=== PATIENT | female | born 1995 | race Caucasian/White ===

== ENCOUNTER 2020-04-22 16:57 | Inpatient (IN) ==
[2020-04-22 18:06] LABS: Appearance Urine Clear (Clear); Bacteria Urine Automated Negative (Negative); Bilirubin Urine Negative (Negative); Blood Urine Trace (Negative); Color Urine Yellow; Epithelial Cell Urine Auto 20-30 /lpf (0-5); Glucose Urine UA Negative (Negative); Ketones Urine 4+ (Negative); Leukocyte Esterase Urine Negative (Negative); Nitrite Urine Negative (Negative); Protein Urine Negative (Negative); RBC Urine Automated 0-4 /hpf (0-4); Specific Gravity Urine 1.014 (1.000-1.030); Urobilinogen Urine Negative (Negative)
[2020-04-22 18:11] LABS: Basophils # (auto) 0.02 K/uL (0-0.2); Basophils % (auto) 0.3 %; Eosinophils # (auto) 0.07 K/uL (0-0.5); Hematocrit (blood only) 33.7 % (37-47); Hemoglobin 11.5 g/dL (12.0-16.0); Immature Granulocytes # (auto) 0.01 K/uL (0.00-0.02); Immature Granulocytes % (auto) 0.1 %; Lymphocytes % (auto) 34.4 %; Mean Corpuscular Hemoglobin 29.4 pg (25-34); Mean Corpuscular Hgb Conc 34.1 g/dL (32-36); Mean Corpuscular Volume 86.2 fL (80-100); Mean Platelet Volume 9.8 fL (7.4-10.4); Monocytes # (auto) 0.86 K/uL (0.11-0.59); Monocytes % (auto) 11.8 %; Neutrophils % (auto) 52.4 %; Platelet Count 298 K/uL (130-400); Red Blood Count 3.91 M/uL (4.2-5.4); White Blood Count 7.26 K/uL (4.8-10.8)
[2020-04-22 18:22] LABS: Amphetamines+Metham, Urine Pos (Neg); Barbiturates, Urine Neg (Neg); Benzodiazepine, Urine Neg (Neg); Cocaine, Urine Neg (Neg); MDMA (Ecstacy), Urine Neg (Neg); Methadone, Urine Neg (Neg); Opiate, Urine Neg (Neg); Phencyclidine, Urine Neg (Neg)
[2020-04-22 18:28] LABS: Albumin Level 4.5 gm/dl (3.4-5.0); BUN Creatinine Ratio 13.1 (10-20); Calcium 8.9 mg/dl (8.5-10.1); Creatinine Clr Calc Pharmacy 118.5 ml/min; Est GFR (African American) 149.1; Est GFR (Non-African American) 128.7
[2020-04-22 18:38] LABS: Albumin Globulin Ratio 1.5 (0.9-2); Bilirubin,Total 0.9 mg/dl (0.2-1); Globulin 2.9 gm/dl (2.5-4.0); Thyroid Stimulating Hormone 1.53 uIu/ml (0.300-4.500); Total Protein 7.4 gm/dl (6.4-8.2)
[2020-04-22 18:41] LABS: Acetaminophen < 2 ug/ml (10-30); Salicylate < 1.7 mg/dl (2.8-20)
--- NOTE | 2020-04-22 18:51 | Emergency Department Note ---
History of Present Illness General Chief complaint: Mental Health Evaluation Stated complaint: MENTAL HEALTH EVAL Time Seen by Provider: 04/22/20 18:20 Source: patient Mode of arrival: other (police) Limitations: no limitations History of Present Illness Provider complaint: Mental health evaluation This is a 24-year-old female who presents via police after family filled out a 302 petition. Patient states she has a history of manic depression and is medicated and does follow with psychiatry. She states she is here because "my family was concerned about me". Patient states her psychiatrist has been changing her medications recently and she is not sure yet if they are helping. Patient denies any SI, HI, paranoia or hallucinations. Patient states she did have a recent fall and has a bruise on her right thigh, however otherwise is able to bear weight, has no bony tenderness, has full range of motion of b ilateral lower extremities. Pt seen during a time of high acuity and national emergency pandemic while wearing PPE. Home Medications Home Medications Medication Instructions Recorded Confirmed Type dextroamphetamine-amphetamine ER 30 mg PO QAM 05/18/19 04/22/20 History 30 mg 24hr capsule,extend release norgestimate-ethinyl estradiol 1 tab PO DAILY 05/18/19 04/22/20 History albuterol sulfate 90 mcg/actuation 2 puffs INH Q4H PRN ea 08/13/19 04/22/20 History breath activated powder inhaler fluoxetine [Prozac] 20 mg PO DAILY 04/22/20 04/22/20 History quetiapine [Seroquel] 25 mg PO DAILY 04/22/20 04/22/20 History ziprasidone HCl 20 mg PO PM 04/22/20 04/22/20 History Allergies Allergy/AdvReac Type Severity Reaction Status Date / Time iodine AdvReac Severe breakout Unverified 07/18/18 15:18 milk AdvReac Gastrointestinal Verified 04/22/20 17:32 Upset Past Med/Surg History Medical History Anxiety Depression Schizophrenia Surgical History History of tooth extraction No pertinent past surgical history Family History Mother Diabetes Other No pertinent family history Social History Preferred Language: Peruvian Communication Ability: Effective Beliefs That Will Affect Care: None Feels Safe at Home: Yes Smoking Status: Never smoker Review of Systems See HPI for pertinent positives & negatives. and A total of 10 systems reviewed and were otherwise negative Physical Exam Vital Signs Vital Signs - 24 hr 04/22/20 17:21 04/22/20 18:46 04/22/20 20:15 Temperature 37.0 C Temperature Source Oral Pulse Rate 135 H Pulse Rate [Finger] 101 H 99 H Respiratory Rate 20 20 16 Blood Pressure 126/68 Blood Pressure [Left Arm] 134/66 120/70 Blood Pressure Mean 87 Blood Pressure Mean [Left Arm] 88 86 Pulse Oximetry 98 98 99 Oxygen Delivery Method Room Air Room Air Room Air Sepsis Recent Fever Within 48 Hours No Sepsis New/Unexplained Change in Mental Status No Sepsis Action Taken by Nursing No Action Required GENERAL: alert, well appearing, well nourished, no distress, non-toxic EYE EXAM: normal conjunctiva, PERRL and EOM's grossly intact OROPHARYNX: no exudate, no erythema, lips, buccal mucosa, and tongue normal and mucous membranes are moist NECK: supple, no nuchal rigidity, no adenopathy, non-tender LUNGS: Clear to auscultation. Normal chest wall mechanics, no w/r/r HEART: no murmurs, S1 normal and S2 normal ABDOMEN: abdomen soft, non-tender, normo-active bowel sounds, no masses, no rebound or guarding. BACK: Back is symmetrical on inspection and there is no deformity, no midline tenderness, no CVA tenderness. SKIN: no rashes and no bruising UPPER EXTREMITIES: upper extremities are grossly normal. FROM, nml pulses b/l. LOWER EXTREMITIES: No pitting edema. FROM, nml pulses b/l. Right thigh with mild tenderness anteriorly, an area of slight yellowing as though this is an area of resolving ecchymosis. NEURO EXAM: Normal sensorium, cranial nerves II-XII grossly intact, normal speech, no gross weakness of arms, no gross weakness of legs. Gross sensation intact. Course Course 2005: Patient seen and evaluated by Chitra psychiatric pillowcase maker. Will attempt to contact family. 2106: Chitra was able to speak with the patient's grandmother, unable to get in touch with mom. Grandma had stated patient has had similar prior episodes when she is out of her medications. Grandma believes that her mother just picked up her medication yesterday and she restarted it today. Given multiple concerns by myself and the psychiatric pillowcase maker, as well as the 302 being written by the patient's own psychiatrist, I do feel patient would benefit from inpatient treatment at this time. 2125: Awaiting Can Help assessment. Pt signed out to Dr. Evans awaiting disposition. Pt was given oral potassium repletion. Administered Medications Miscellaneous (Order Awaiting Action) 1 ea N/A QS HEATH Stop: 05/23/20 15:59 Last Admin: 04/24/20 00:12 Dose: Not Given Documented by: [id number] Admin: 04/23/20 17:21 Dose: Not Given Documented by: [id number] Ziprasidone (Geodon) 40 mg PO QDD HEATH Stop: 05/23/20 17:44 Last Admin: 04/23/20 17:18 Dose: 40 mg Documented by: [id number] Discontinued Medications Potassium Chloride (Klor-Con M20) 40 meq PO NOW STA Stop: 04/22/20 20:18 Last Admin: 04/22/20 20:24 Dose: 40 meq Documented by: [id number] Potassium Chloride (Klor-Con M20) 40 meq PO NOW ONE Stop: 04/23/20 10:20 Last Admin: 04/23/20 11:41 Dose: 40 meq Documented by: [id number] Quetiapine Fumarate (Seroquel) 50 mg PO NOW STA Stop: 04/22/20 23:05 Last Admin: 04/22/20 23:11 Dose: 50 mg Documented by: [id number] Medical Decision Making Differential Diagnosis Differential diagnoses considered include mood disorder, infection, hypoglycemia , electrolyte abnormalities, cardiac sources, intracerebral event, toxicologic, neurologic, as well as others. Medical Records Attestation: I reviewed the patient's medical records. Home Medications Current Medication List: was personally reviewed by me Laboratory Data Attestation: I reviewed the patient's lab results. Result diagrams: 04/22/20 17:58 04/22/20 17:58 Lab Results 04/22/20 04/22/20 04/22/20 Range/Units 17:47 17:47 17:47 WBC (4.8-10.8) K/uL RBC (4.2-5.4) M/uL Hgb (12.0-16.0) g/dL Hct (37-47) % MCV (80-100) fL MCH (25-34) pg MCHC (32-36) g/dL RDW Std Deviation (36.4-46.3) fL RDW Coeff of Santosh (11.5-14.5) % Plt Count (130-400) K/uL MPV (7.4-10.4) fL Immature Gran % (Auto) % Neut % (Auto) % Lymph % (Auto) % [place] % (Auto) % Eos % (Auto) % Baso % (Auto) % Immature Gran # (Auto) (0.00-0.02) K/uL Neut # (Auto) (1.4-6.5) K/uL Lymph # (Auto) (1.2-3.4) K/uL [place] # (Auto) (0.11-0.59) K/uL Eos # (Auto) (0-0.5) K/uL Baso # (Auto) (0-0.2) K/uL Sodium (136-145) mmol/L Potassium (3.5-5.1) mmol/L Chloride (98-107) mmol/L Carbon Dioxide (21-32) mmol/L Anion Gap (3-11) BUN (7-18) mg/dl Creatinine (0.6-1.2) mg/dl Est Cr Clr Drug Dosing ml/min Est GFR ( Amer) Est GFR (Non-Af Amer) BUN/Creatinine Ratio (10-20) Glucose (70-99) mg/dl Calcium (8.5-10.1) mg/dl Total Bilirubin (0.2-1) mg/dl AST (15-37) U/L ALT (12-78) U/L Alkaline Phosphatase (45-117) U/L Total Protein (6.4-8.2) gm/dl Albumin (3.4-5.0) gm/dl Globulin (2.5-4.0) gm/dl Albumin/Globulin Ratio (0.9-2) TSH (0.300-4.500) uIu/ml Urine Color Yellow Urine Appearance Clear (Clear) Urine pH 6.0 (4.5-7.5) Ur Specific [place] 1.014 (1.000-1.030) Urine Protein Negative (Negative) Urine Glucose (UA) Negative (Negative) Urine Ketones 4+ H (Negative) Urine Blood Trace H (Negative) Urine Nitrite Negative (Negative) Urine Bilirubin Negative (Negative) Urine Urobilinogen Negative (Negative) Ur Leukocyte Esterase Negative (Negative) Urine WBC (Auto) 1-5 (0-5) /hpf Urine RBC (Auto) 0-4 (0-4) /hpf U Hyaline Cast (Auto) 1-5 (0-5) /lpf U Epithel Cells (Auto) 20-30 H (0-5) /lpf Urine Bacteria (Auto) Negative (Negative) POC Ur Test NEG (NEG) Salicylates (2.8-20) mg/dl Urine Opiates Screen Neg (Neg) Ur Methadone, Qual Neg (Neg) Acetaminophen (10-30) ug/ml Urine Barbiturates Neg (Neg) Ur Phencyclidine (PCP) Neg (Neg) U Amphetamin/Meth Scrn Pos H (Neg) MDMA (Ecstasy) Screen Neg (Neg) U Benzodiazepines Scrn Neg (Neg) Ur Cocaine Metabolite Neg (Neg) U Marijuana (THC) Screen Pos H (Neg) Ethyl Alcohol mg/dL (0-3) mg/dl 04/22/20 04/22/20 04/22/20 Range/Units 17:58 17:58 17:58 WBC 7.26 (4.8-10.8) K/uL RBC 3.91 L (4.2-5.4) M/uL Hgb 11.5 L (12.0-16.0) g/dL Hct 33.7 L (37-47) % MCV 86.2 (80-100) fL MCH 29.4 (25-34) pg MCHC 34.1 (32-36) g/dL RDW Std Deviation 41.0 (36.4-46.3) fL RDW Coeff of Santosh 13.0 (11.5-14.5) % Plt Count 298 (130-400) K/uL MPV 9.8 (7.4-10.4) fL Immature Gran % (Auto) 0.1 % Neut % (Auto) 52.4 % Lymph % (Auto) 34.4 % [place] % (Auto) 11.8 % Eos % (Auto) 1.0 % Baso % (Auto) 0.3 % Immature Gran # (Auto) 0.01 (0.00-0.02) K/uL Neut # (Auto) 3.80 (1.4-6.5) K/uL Lymph # (Auto) 2.50 (1.2-3.4) K/uL [place] # (Auto) 0.86 H (0.11-0.59) K/uL Eos # (Auto) 0.07 (0-0.5) K/uL Baso # (Auto) 0.02 (0-0.2) K/uL Sodium 137 (136-145) mmol/L Potassium 3.0 L (3.5-5.1) mmol/L Chloride 105 (98-107) mmol/L Carbon Dioxide 25 (21-32) mmol/L Anion Gap 8.0 (3-11) BUN 8 (7-18) mg/dl Creatinine 0.61 (0.6-1.2) mg/dl Est Cr Clr Drug Dosing 118.5 ml/min Est GFR ( Amer) 149.1 Est GFR (Non-Af Amer) 128.7 BUN/Creatinine Ratio 13.1 (10-20) Glucose 94 (70-99) mg/dl Calcium 8.9 (8.5-10.1) mg/dl Total Bilirubin 0.9 (0.2-1) mg/dl AST 14 L (15-37) U/L ALT 19 (12-78) U/L Alkaline Phosphatase 79 (45-117) U/L Total Protein 7.4 (6.4-8.2) gm/dl Albumin 4.5 (3.4-5.0) gm/dl Globulin 2.9 (2.5-4.0) gm/dl Albumin/Globulin Ratio 1.5 (0.9-2) TSH 1.530 (0.300-4.500) uIu/ml Urine Color Urine Appearance (Clear) Urine pH (4.5-7.5) Ur Specific [place] (1.000-1.030) Urine Protein (Negative) Urine Glucose (UA) (Negative) Urine Ketones (Negative) Urine Blood (Negative) Urine Nitrite (Negative) Urine Bilirubin (Negative) Urine Urobilinogen (Negative) Ur Leukocyte Esterase (Negative) Urine WBC (Auto) (0-5) /hpf Urine RBC (Auto) (0-4) /hpf U Hyaline Cast (Auto) (0-5) /lpf U Epithel Cells (Auto) (0-5) /lpf Urine Bacteria (Auto) (Negative) POC Ur Test (NEG) Salicylates < 1.7 L (2.8-20) mg/dl Urine Opiates Screen (Neg) Ur Methadone, Qual (Neg) Acetaminophen < 2 L (10-30) ug/ml Urine Barbiturates (Neg) Ur Phencyclidine (PCP) (Neg) U Amphetamin/Meth Scrn (Neg) MDMA (Ecstasy) Screen (Neg) U Benzodiazepines Scrn (Neg) Ur Cocaine Metabolite (Neg) U Marijuana (THC) Screen (Neg) Ethyl Alcohol mg/dL (0-3) mg/dl 04/22/20 Range/Units 17:58 WBC (4.8-10.8) K/uL RBC (4.2-5.4) M/uL Hgb (12.0-16.0) g/dL Hct (37-47) % MCV (80-100) fL MCH (25-34) pg MCHC (32-36) g/dL RDW Std Deviation (36.4-46.3) fL RDW Coeff of Santosh (11.5-14.5) % Plt Count (130-400) K/uL MPV (7.4-10.4) fL Immature Gran % (Auto) % Neut % (Auto) % Lymph % (Auto) % [place] % (Auto) % Eos % (Auto) % Baso % (Auto) % Immature Gran # (Auto) (0.00-0.02) K/uL Neut # (Auto) (1.4-6.5) K/uL Lymph # (Auto) (1.2-3.4) K/uL [place] # (Auto) (0.11-0.59) K/uL Eos # (Auto) (0-0.5) K/uL Baso # (Auto) (0-0.2) K/uL Sodium (136-145) mmol/L Potassium (3.5-5.1) mmol/L Chloride (98-107) mmol/L Carbon Dioxide (21-32) mmol/L Anion Gap (3-11) BUN (7-18) mg/dl Creatinine (0.6-1.2) mg/dl Est Cr Clr Drug Dosing ml/min Est GFR ( Amer) Est GFR (Non-Af Amer) BUN/Creatinine Ratio (10-20) Glucose (70-99) mg/dl Calcium (8.5-10.1) mg/dl Total Bilirubin (0.2-1) mg/dl AST (15-37) U/L ALT (12-78) U/L Alkaline Phosphatase (45-117) U/L Total Protein (6.4-8.2) gm/dl Albumin (3.4-5.0) gm/dl Globulin (2.5-4.0) gm/dl Albumin/Globulin Ratio (0.9-2) TSH (0.300-4.500) uIu/ml Urine Color Urine Appearance (Clear) Urine pH (4.5-7.5) Ur Specific [place] (1.000-1.030) Urine Protein (Negative) Urine Glucose (UA) (Negative) Urine Ketones (Negative) Urine Blood (Negative) Urine Nitrite (Negative) Urine Bilirubin (Negative) Urine Urobilinogen (Negative) Ur Leukocyte Esterase (Negative) Urine WBC (Auto) (0-5) /hpf Urine RBC (Auto) (0-4) /hpf U Hyaline Cast (Auto) (0-5) /lpf U Epithel Cells (Auto) (0-5) /lpf Urine Bacteria (Auto) (Negative) POC Ur Test (NEG) Salicylates (2.8-20) mg/dl Urine Opiates Screen (Neg) Ur Methadone, Qual (Neg) Acetaminophen (10-30) ug/ml Urine Barbiturates (Neg) Ur Phencyclidine (PCP) (Neg) U Amphetamin/Meth Scrn (Neg) MDMA (Ecstasy) Screen (Neg) U Benzodiazepines Scrn (Neg) Ur Cocaine Metabolite (Neg) U Marijuana (THC) Screen (Neg) Ethyl Alcohol mg/dL < 3.0 (0-3) mg/dl Blood Pressure Blood Pressure Findings: Normal blood pressure MDM Narrative Pt here as a 302. I do feel pt would benefit from inpatient treatment at this time. Pt with poor insight into condition, and I feel has a component of psychosis. Labs reassuring. Pt tachycardic intermittently, I feel this is related to anxiety as well as possible dehydration. Pt encouraged to drink fluids while in the ER. Impression & Plan Schizophrenia, Mood disorder, Psychosis Discharge Plan Visit Data *Final* Discharge Date/Time: 04/22/20 23:49 Chief Complaint: Mental Health Evaluation Stated Complaint: MENTAL HEALTH EVAL ED Provider: Zohra Dove Discharge Problem: Schizophrenia, Mood disorder, Psychosis Patient Disposition: Admitted As Inpatient Discharge Instructions Interventions: ED Discharge Assessment Last Done: 04/22/20 23:49 Discharge Problem: Schizophrenia Qualifiers: Schizophrenia type: unspecified Qualified Code(s): F20.9 - Schizophrenia, unspecified Psychosis Qualifiers: Psychosis type: unspecified psychosis type Qualified Code(s): F29 - Unspecified psychosis not due to a substance or known physiological condition
[2020-04-22] MEDS ORDERED: POTASSIUM CHLORIDE 20 MEQ TABCR PO STA (20:17)
[2020-04-22] MEDS ORDERED: BISMUTH SUBSALICYLATE PER ML OMNICELL CHARGE PO PRN (22:32)
[2020-04-22] MEDS ORDERED: SODIUM CHLORIDE 0.65% NA SOLN 45 ML (OCEAN) PRN (22:32)
[2020-04-22] MEDS ORDERED: ALUMINUM/MAGNESIUM SUSP 30 ML UDC PO PRN (22:32)
[2020-04-22] MEDS ORDERED: MAGNESIUM HYDROXIDE SUSP 30 ML UDC PO PRN (22:32)
[2020-04-22] MEDS ORDERED: ACETAMINOPHEN 325 MG TAB PO PRN (22:32)
[2020-04-22] MEDS ORDERED: haloperidoL 5 MG TAB PO PRN (22:37)
[2020-04-22] MEDS ORDERED: QUETIAPINE FUMARATE 25 MG TABLET PO STA (23:04)
--- NOTE | 2020-04-22 23:11 | Emergency Department Note ---
ED Visit Note This patient was initially seen by Dr. Dove. She was signed out to me pending psychiatric admission under 302 warrant for psychosis and being a danger to herself. Her psychiatrist sent to here for admission with a 302 petition. The complex case manager is noted that she has shown rather irrational behavior here and started dancing and taking her clothes off. The patient was unwilling to sign herself in and showed poor insight and judgment and I did signed the 302. She was accepted [facility]. They did request that I treat the p atient with Seroquel 50 mg p.o. which I did. . : Schizophrenia Qualifiers: Schizophrenia type: unspecified Qualified Code(s): F20.9 - Schizophrenia, unspecified Psychosis Qualifiers: Psychosis type: unspecified psychosis type Qualified Code(s): F29 - Unspecified psychosis not due to a substance or known physiological condition
[2020-04-23] MEDS ORDERED: NORGESTIMATE ETHINYL ESTRADIOL PO SCH (10:15)
--- NOTE | 2020-04-23 10:15 | History & Physical ---
Date of Service April 23, 2020 Impression / Recommendations Impression 24 yo female with a history of bipolar disorder who presents with one week of thought disorganization and change in behavior culminating in loss of time and making perceived threat to burn down apartment. Her condition likely worsened due to ongoing use of MJ, perhaps even prescription meds like Adderall and Prozac have been too activating during the cross taper in atypicals. She denies change in use. (1) Bipolar 1 disorder with moderate alessandro: The patient was admitted to the [facility] ([facility] health unit) on q15 min checks (behavioral with suicide precautions) for safety. The patient will participate in group, recreational, and milieu therapies and will be offered additional individual and family sessions as clinically appropriate. Risks/benefits/alternatives reviewed re: current medications. Adderall preps will be held given alessandro and need to confirm diagnosis, particularly in the setting of bipolar mood disorder. Prozac to be held due to alessandro. D/C Seroquel as per outpatient plan and titrate Geodon to 40 mg daily. Risks/benefits/alternative treatments reviewed, including but not limited to need for monitoring for metabolic and TD risks. AIMS=0 at baseline. fasting lipids in am. Reviewed importance of taking Geodon with evening meal for absorption. (2) Hypokalemia: received one dose of Kdur in ED. Will repeat and recheck K in am. Likely due to poor nutrition/emesis prior to admission. (3) Cannabis use disorder, moderate, dependence: at this point a rule out, recommend abstinence, daily use with previous use of controlled substance is not advised during this episode. She is not able to participate in meaningful discussion around treatment at this time due to though disorganization. Inventory Assets Strengths: intelligent, local family support Needs: medication adjustment, education around commitment, mother to care for 2 cats. 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 She is a [employer] student with a history of bipolar disorder, and was admitted on 04/22/20 22:32 on a 302 involuntary commitment for disorganized behavior. Chief Complaint "My thoughts were all over the place, I couldn't remember what day or year it was". History of Present Illness Kristy states she can't remember this week. She is unsure why as I "usually get hospitalized in July", the anniversary of her middle school friend's from lymphoma. She states that Seroquel has been too sedating and working with her outpatient provider on cross taper to Geodon in the past week. She feels her sleep has been OK but concentration poor for her online classes which is an issue as she is scheduled to graduate in June. She does not recall her conversations with Anisha Rosa PA-C and states that any comments she made about a manager of community relations and burning down her apartment were likely a factor of her having thoughts about combustables and a former chemistry class. She is animated and takes notes during our discussion but has difficulty understanding that a 302 commitment is up to 120 hrs, not 72. She is ambivalent about being here and reports that today is her friend's wedding though can't explain how this was taking place with COVD-19 restrictions. She also attributes her comments about burning the apartment to a fear that her grandmother was falling down the steps. Mother and grandmother had gone to apartment when friends reported she didn't seem right yesterday. She denies misuse of stimulant medication. She denies paranoia, ever having SI or perrin. When asked about self care she said "fine" but then when questioned about ketones in urine in ED suggested not eating well she said she's been having some GREENE with N and 1 episode of vomiting. She denies a history of migraines. Only other symptom she endorses at this time is "sassiness" with people, attributes to her period. Denies impulsivity, increased goal directed activity, grandiosity, excessive spending. Finances are a stressor and she is anticipating a [facility] [employer] galina to pay her rent. Past Psychiatric History Current Psychiatric Diagnosis: Bipolar Disorder Type 2, PTSD, Anxiety, Depression Outpatient Services: [facility] Previous Psych Admissions: [facility] 08/05 and ?19 Do You Have Access To A Gun?: No History of Previous Suicide Attempt: No Describe Attempts in the Past: denies Past Medication Trials: Seroquel is being discontinued, will need to get records. Past Head Trauma/Neuro History History of Concussion/Seizure: No Allergies Allergy/AdvReac Type Severity Reaction Status Date / Time iodine AdvReac Severe breakout Unverified 07/18/18 15:18 milk AdvReac Gastrointestinal Verified 04/22/20 17:32 Upset Home Medications Home Medications Medication Instructions Recorded Confirmed Type dextroamphetamine-amphetamine ER 30 mg PO QAM 05/18/19 04/22/20 History 30 mg 24hr capsule,extend release norgestimate-ethinyl estradiol 1 tab PO DAILY 05/18/19 04/22/20 History albuterol sulfate 90 mcg/actuation 2 puffs INH Q4H PRN ea 08/13/19 04/22/20 History breath activated powder inhaler fluoxetine [Prozac] 20 mg PO DAILY 04/22/20 04/22/20 History quetiapine [Seroquel] 25 mg PO DAILY 04/22/20 04/22/20 History ziprasidone HCl 20 mg PO PM 04/22/20 04/22/20 History Family History Family History of: Doesn't Know Family Mental Health History Comment: father and mat aunt - bipolar (although father may be more schizoaffective or schizophrenia) mother diabetes Alcohol History Hx of Alcohol Use Over the Past 12 Months: Yes (social, "couple drinks every now and then".) AUDIT Total Score: 3 Smoking Use Smoking Status: Never smoker Substance History Hx of Prescription Med Misuse Over the Past 12 Months: No Hx of Over the Counter Med Misuse Over the Past 12 Months: No Hx of Inhalent Misuse Over the Past 12 Months: No Hx of Organic Substance Use Over the Past 12 Months: Yes (Medical marijuana past year, daily.) Hx of Illegal Substances/Street Drug Use Over Past 12 Months: No Problems as a Result of Past Substance Use: None Identified Problems as a Result of Past Substance Use Comments: now denies medical MJ card, use decrease of street MJ, ?daily Personal History Living Arrangements: Apartment Childhood: mother lives in [place] Highest Grade Completed: College ([employer] major, due to graduate June and plans a gap year) Employment Status: Student Number Of Children: none Beliefs That Will Affect Care: None Hx Traumatic Life Events: Yes (best friend dying in 8th grade) Patient History Medical History Anxiety Depression Schizophrenia Surgical History History of tooth extraction No pertinent past surgical history Family History Mother Diabetes Other No pertinent family history Social History Preferred Language: Hong Konger Communication Ability: Effective Beliefs That Will Affect Care: None Feels Safe at Home: Yes Smoking Status: Never smoker Review of Systems Review of Systems: All systems reviewed & are unremarkable except as noted in HPI & below Physical Exam Psychiatric: Orientation: alert, oriented to person, oriented to place and cooperative Apperance: appropriately groomed Eye Contact: good eye contact Motor Behavior: no abnormal motor movements hyperverbal Affect: + labile affect (overly bright to tearful) Mood: + anxious mood Thought Process: + tangential thought process Thought Content: not paranoid and no delusions Suicidal Thoughts: denies suicidal thoughts Homicidal Thoughts: denies homicidal thoughts Hallucinations: no auditory hallucinations and no visual hallucinations Cognition: + attention not intact Insight: + impaired insight Judgement: + impaired judgement Vital Signs (Past 24 Hours): Last Vital Signs Temp 37 C 04/23/20 06:44 Pulse 110 H 04/23/20 06:44 Resp 18 04/23/20 06:44 BP 119/76 04/23/20 06:44 Pulse Ox 99 04/22/20 23:30 Exam Statement: A physical exam was performed in the ED by Dr. Dove for the purposes of medical clearance. I accept that physical as correct and adequate for the purposes of the inpatient physical exam. Results & Data ([facility]) Laboratory Results Laboratory Results - last 24 hr 04/22/20 04/22/20 04/22/20 17:47 17:47 17:47 WBC RBC Hgb Hct MCV MCH MCHC RDW Std Deviation RDW Coeff of Santosh Plt Count MPV Immature Gran % (Auto) Neut % (Auto) Lymph % (Auto) [place] % (Auto) Eos % (Auto) Baso % (Auto) Immature Gran # (Auto) Neut # (Auto) Lymph # (Auto) [place] # (Auto) Eos # (Auto) Baso # (Auto) Sodium Potassium Chloride Carbon Dioxide Anion Gap BUN Creatinine Est Cr Clr Drug Dosing Est GFR ( Amer) Est GFR (Non-Af Amer) BUN/Creatinine Ratio Glucose Calcium Total Bilirubin AST ALT Alkaline Phosphatase Total Protein Albumin Globulin Albumin/Globulin Ratio TSH Urine Color Yellow Urine Appearance Clear Urine pH 6.0 Ur Specific [place] 1.014 Urine Protein Negative Urine Glucose (UA) Negative Urine Ketones 4+ H Urine Blood Trace H Urine Nitrite Negative Urine Bilirubin Negative Urine Urobilinogen Negative Ur Leukocyte Esterase Negative Urine WBC (Auto) 1-5 Urine RBC (Auto) 0-4 U Hyaline Cast (Auto) 1-5 U Epithel Cells (Auto) 20-30 H Urine Bacteria (Auto) Negative POC Ur Test NEG Salicylates Urine Opiates Screen Neg Ur Methadone, Qual Neg Acetaminophen Urine Barbiturates Neg Ur Phencyclidine (PCP) Neg U Amphetamines Confirm U Amphetamin/Meth Scrn Pos H U Methamphetamin Confrm MDMA (Ecstasy) Screen Neg U Benzodiazepines Scrn Neg Ur Cocaine Metabolite Neg U Marijuana (THC) Screen Pos H U Marijuana THC Carboxy Drug Screen Comment Ethyl Alcohol mg/dL 04/22/20 04/22/20 04/22/20 17:47 17:58 17:58 WBC 7.26 RBC 3.91 L Hgb 11.5 L Hct 33.7 L MCV 86.2 MCH 29.4 MCHC 34.1 RDW Std Deviation 41.0 RDW Coeff of Santosh 13.0 Plt Count 298 MPV 9.8 Immature Gran % (Auto) 0.1 Neut % (Auto) 52.4 Lymph % (Auto) 34.4 [place] % (Auto) 11.8 Eos % (Auto) 1.0 Baso % (Auto) 0.3 Immature Gran # (Auto) 0.01 Neut # (Auto) 3.80 Lymph # (Auto) 2.50 [place] # (Auto) 0.86 H Eos # (Auto) 0.07 Baso # (Auto) 0.02 Sodium 137 Potassium 3.0 L Chloride 105 Carbon Dioxide 25 Anion Gap 8.0 BUN 8 Creatinine 0.61 Est Cr Clr Drug Dosing 118.5 Est GFR ( Amer) 149.1 Est GFR (Non-Af Amer) 128.7 BUN/Creatinine Ratio 13.1 Glucose 94 Calcium 8.9 Total Bilirubin 0.9 AST 14 L ALT 19 Alkaline Phosphatase 79 Total Protein 7.4 Albumin 4.5 Globulin 2.9 Albumin/Globulin Ratio 1.5 TSH 1.530 Urine Color Urine Appearance Urine pH Ur Specific [place] Urine Protein Urine Glucose (UA) Urine Ketones Urine Blood Urine Nitrite Urine Bilirubin Urine Urobilinogen Ur Leukocyte Esterase Urine WBC (Auto) Urine RBC (Auto) U Hyaline Cast (Auto) U Epithel Cells (Auto) Urine Bacteria (Auto) POC Ur Test Salicylates Urine Opiates Screen Ur Methadone, Qual Acetaminophen Urine Barbiturates Ur Phencyclidine (PCP) U Amphetamines Confirm Pending U Amphetamin/Meth Scrn U Methamphetamin Confrm Pending MDMA (Ecstasy) Screen U Benzodiazepines Scrn Ur Cocaine Metabolite U Marijuana (THC) Screen U Marijuana THC Carboxy Pending Drug Screen Comment Pending Ethyl Alcohol mg/dL 04/22/20 04/22/20 17:58 17:58 WBC RBC Hgb Hct MCV MCH MCHC RDW Std Deviation RDW Coeff of Santosh Plt Count MPV Immature Gran % (Auto) Neut % (Auto) Lymph % (Auto) [place] % (Auto) Eos % (Auto) Baso % (Auto) Immature Gran # (Auto) Neut # (Auto) Lymph # (Auto) [place] # (Auto) Eos # (Auto) Baso # (Auto) Sodium Potassium Chloride Carbon Dioxide Anion Gap BUN Creatinine Est Cr Clr Drug Dosing Est GFR ( Amer) Est GFR (Non-Af Amer) BUN/Creatinine Ratio Glucose Calcium Total Bilirubin AST ALT Alkaline Phosphatase Total Protein Albumin Globulin Albumin/Globulin Ratio TSH Urine Color Urine Appearance Urine pH Ur Specific [place] Urine Protein Urine Glucose (UA) Urine Ketones Urine Blood Urine Nitrite Urine Bilirubin Urine Urobilinogen Ur Leukocyte Esterase Urine WBC (Auto) Urine RBC (Auto) U Hyaline Cast (Auto) U Epithel Cells (Auto) Urine Bacteria (Auto) POC Ur Test Salicylates < 1.7 L Urine Opiates Screen Ur Methadone, Qual Acetaminophen < 2 L Urine Barbiturates Ur Phencyclidine (PCP) U Amphetamines Confirm U Amphetamin/Meth Scrn U Methamphetamin Confrm MDMA (Ecstasy) Screen U Benzodiazepines Scrn Ur Cocaine Metabolite U Marijuana (THC) Screen U Marijuana THC Carboxy Drug Screen Comment Ethyl Alcohol mg/dL < 3.0 Current Inpatient Medications Current Inpatient Medications: Current Inpatient Medications Acetaminophen (Tylenol) 650 mg PO Q4H PRN PRN Reason: Headache or Minor Fever Stop: 05/22/20 22:31 Al Hydrox/Mg Hydrox/Simethicone (Maalox) 30 ml PO Q4H PRN PRN Reason: GI Upset Stop: 05/22/20 22:31 Bismuth Subsalicylate (Kaopectate) 15 ml PO PRN PRN PRN Reason: Loose Stool Stop: 05/22/20 22:31 Haloperidol (Haldol) 5 mg PO Q6 PRN PRN Reason: Paranoia Stop: 05/22/20 22:36 Hydroxyzine HCl (Vistaril) 50 mg PO HSZ PRN PRN Reason: Insomnia Stop: 05/22/20 22:31 Hydroxyzine HCl (Vistaril) 25 mg PO Q4H PRN PRN Reason: Anxiety Stop: 05/22/20 22:31 Magnesium Hydroxide (Milk Of Magnesia) 30 ml PO DAILY PRN PRN Reason: Constipation Stop: 05/22/20 22:31 Sodium Chloride ([place] Nasal) 1 - 2 sprays NA PRN PRN PRN Reason: Nasal Dryness/Congestion Stop: 05/22/20 22:31
[2020-04-23] MEDS ORDERED: ALBUTEROL HFA 8 GM INHALER INH PRN (10:18)
[2020-04-23] MEDS ORDERED: POTASSIUM CHLORIDE 20 MEQ TABCR PO ONE (10:19)
[2020-04-23] MEDS ORDERED: haloperidoL 1 MG TAB PO PRN (10:31)
[2020-04-24 08:37] LABS: Potassium 4.2 mmol/L (3.5-5.1)
--- NOTE | 2020-04-24 11:19 | Psychiatric Progress Note ---
Date of Service April 24, 2020 Impression / Recommendations Impression 24 yo female with a history of bipolar disorder who presents with one week of thought disorganization and change in behavior culminating in loss of time and making perceived threat to burn down apartment. Her condition likely worsened due to ongoing use of MJ, perhaps even prescription meds like Adderall and Prozac have been too activating during the cross taper in atypicals. improving following hold of SSRI and Adderall, titration of Geodon. (1) Bipolar 1 disorder with moderate alessandro: 04/23 The patient was admitted to the [facility] ([facility] health [facility]) on q15 min checks (behavioral with suicide precautions) for safety. The patient will participate in group, recreational, and milieu therapies and will be offered additional individual and family sessions as clinically appropriate. Risks/benefits/alternatives reviewed re: current medications. Adderall preps will be held given alessandro and need to confirm diagnosis, particularly in the setting of bipolar mood disorder. Prozac to be held due to alessandro. D/C Seroquel as per outpatient plan and titrate Geodon to 40 mg daily. Risks/benefits/alternative treatments reviewed, including but not limited to need for monitoring for metabolic and TD risks. AIMS=0 at baseline. fasting lipids in am. Reviewed importance of taking Geodon with evening meal for absorption. 04/24 continue current meds and treatment plan, tolerating 40 mg Geodon and appears much improved. Reviewed labs. (2) Hypokalemia: 04/23--received one dose of Kdur in ED. Will repeat and recheck K in am. Likely due to poor nutrition/emesis prior to admission. 04/24--resolved (3) Cannabis use disorder, moderate, dependence: 04/23--at this point a rule out, recommend abstinence, daily use with previous use of controlled substance is not advised during this episode. She is not able to participate in meaningful discussion around treatment at this time due to though disorganization. 04/24--Brief intervention was offered and accepted. Intervention was greater than 5 min in length and included assessing readiness to quit, advice on how to reduce or abstain from MJ, and to set a specific goal for this hospitalization. The patient is in contemplation stage, mainly not using street MJ. Reviewed risks of worsening her condition as well as interaction with prescription medications. Inventory Assets Strengths: intelligent, local family support Needs: medication adjustment, education around commitment, mother to care for 2 cats. 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 Review of Systems Sleep Information Total Hours of Sleep: 7.5 Sleep Comments: awake at 0330 rounds-rolling around in bed Meal Information Percent Meal Consumed - Breakfast: 90 Percent Meal Consumed - Lunch: 75 Percent Meal Consumed - Dinner: 100 Subjective Subjective Patient was seen & assessed and interval progress reviewed with nursing and social work. No acute issues overnight. No emesis. Cooperative with unit routines. Accepting medication. Gaining insight into how med changes and/or combination with substances contributed to her presentation. She is amenable to family meeting with mother and grandmother. Physical Exam Psychiatric Orientation: alert, oriented to person, oriented to place and cooperative Apperance: appropriately groomed Eye Contact: good eye contact Motor Behavior: no abnormal motor movements Affect: euthymic affect Mood: + anxious mood Thought Process: clear/coherent thought process Thought Content: not paranoid and no delusions Suicidal Thoughts: denies suicidal thoughts Homicidal Thoughts: denies homicidal thoughts Hallucinations: no auditory hallucinations and no visual hallucinations Cognition: attention grossly intact Insight: + limited insight Judgement: + limited judgement Vital Signs (Past 24 Hours) Last Vital Signs Temp 36.8 C 04/24/20 06:31 Pulse 86 04/24/20 06:31 Resp 18 04/24/20 06:31 BP 107/72 04/24/20 06:31 Pulse Ox 99 04/22/20 23:30 Results & Data ([facility]) Laboratory Results Laboratory Results - last 24 hr 04/24/20 07:46 Sodium 140 Potassium 4.2 D Chloride 108 H Carbon Dioxide 28 Anion Gap 4.0 Fasting Glucose 82 Triglycerides 86 Cholesterol 217 H LDL Cholesterol, Calc 151 VLDL Cholesterol, Calc 17 HDL Cholesterol 49 Cholesterol/HDL Ratio 4 Current Inpatient Medications Current Inpatient Medications: Current Inpatient Medications Acetaminophen (Tylenol) 650 mg PO Q4H PRN PRN Reason: Headache or Minor Fever Stop: 05/22/20 22:31 Al Hydrox/Mg Hydrox/Simethicone (Maalox) 30 ml PO Q4H PRN PRN Reason: GI Upset Stop: 05/22/20 22:31 Albuterol (Ventolin Hfa) 2 puffs INH Q4H PRN PRN Reason: Shortness Of Breath Or Wheezing Stop: 05/23/20 10:17 Bismuth Subsalicylate (Kaopectate) 15 ml PO PRN PRN PRN Reason: Loose Stool Stop: 05/22/20 22:31 Haloperidol (Haldol) 2 mg PO Q6 PRN PRN Reason: Paranoia Stop: 05/22/20 22:36 Hydroxyzine HCl (Vistaril) 50 mg PO HSZ PRN PRN Reason: Insomnia Stop: 05/22/20 22:31 Hydroxyzine HCl (Vistaril) 25 mg PO Q4H PRN PRN Reason: Anxiety Stop: 05/22/20 22:31 Magnesium Hydroxide (Milk Of Magnesia) 30 ml PO DAILY PRN PRN Reason: Constipation Stop: 05/22/20 22:31 Miscellaneous (Order Awaiting Action) 1 ea N/A QS [facility] Stop: 05/23/20 15:59 Last Admin: 04/24/20 07:54 Dose: Not Given Documented by: Sodium Chloride ([place] Nasal) 1 - 2 sprays NA PRN PRN PRN Reason: Nasal Dryness/Congestion Stop: 05/22/20 22:31 Ziprasidone (Geodon) 40 mg PO QDD HEATH Stop: 05/23/20 17:44 Last Admin: 04/23/20 17:18 Dose: 40 mg Documented by: Mental Health & Subst Abuse Tx Therapist Name of Therapist: Jacklyn (unknown last name) CASSIDY Soares Bus Matron Name of Bus Matron: none Post Discharge Appointments Primary Care Physician Name Of Family Doctor: Brianne
[2020-04-24] MEDS ORDERED: LORazepam 1 MG TAB PO PRN (17:43)
--- NOTE | 2020-04-25 07:52 | Psychiatric Progress Note ---
Date of Service April 25, 2020 Impression / Recommendations Impression 24 yo female with a history of bipolar disorder who presents with one week of thought disorganization and change in behavior culminating in loss of time and making perceived threat to burn down apartment. Her condition likely worsened due to ongoing use of MJ, perhaps even prescription meds like Adderall and Prozac have been too activating during the cross taper in atypicals. 04/25--variable presentation shift to shift suggests ongoing alessandro (1) Bipolar 1 disorder with moderate alessandro: 04/23 The patient was admitted to the [facility] ([facility] health unit) on q15 min checks (behavioral with suicide precautions) for safety. The patient will participate in group, recreational, and milieu therapies and will be offered additional individual and family sessions as clinically appropriate. Risks/benefits/alternatives reviewed re: current medications. Adderall preps will be held given alessandro and need to confirm diagnosis, particularly in the setting of bipolar mood disorder. Prozac to be held due to alessandro. D/C Seroquel as per outpatient plan and titrate Geodon to 40 mg daily. Risks/benefits/alternative treatments reviewed, including but not limited to ne ed for monitoring for metabolic and TD risks. AIMS=0 at baseline. fasting lipids in am. Reviewed importance of taking Geodon with evening meal for absorption. 04/24 continue current meds and treatment plan, tolerating 40 mg Geodon and appears much improved. Reviewed labs. 04/25--titrate Geodon 60 mg qpm. d/c MNPR. (2) Hypokalemia: 04/23--received one dose of Kdur in ED. Will repeat and recheck K in am. Likely due to poor nutrition/emesis prior to admission. 04/24--resolved (3) Cannabis use disorder, moderate, dependence: 04/23--at this point a rule out, recommend abstinence, daily use with previous use of controlled substance is not advised during this episode. She is not able to participate in meaningful discussion around treatment at this time due to though disorganization. 04/24--Brief intervention was offered and accepted. Intervention was greater than 5 min in length and included assessing readiness to quit, advice on how to reduce or abstain from MJ, and to set a specific goal for this hospitalization. The patient is in contemplation stage, mainly not using street MJ. Reviewed risks of worsening her condition as well as interaction with prescription medications. Inventory Assets Strengths: intelligent, local family support Needs: medication adjustment, education around commitment, mother to care for 2 cats. 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 Review of Systems Sleep Information Total Hours of Sleep: 10.25 Sleep Comments: awake at 0330 rounds-rolling around in bed Meal Information Percent Meal Consumed - Breakfast: 90 Percent Meal Consumed - Lunch: 75 Percent Meal Consumed - Dinner: 90 Subjective Subjective Patient was seen & assessed and interval progress reviewed with nursing and social work. family meeting did not go well in that she became disorganized, overly focussed on the number 3 and started talking about oxygen and chemicals again. She does not recall this. She says "I play games in my head when I need t o", was writing voluminously but did not become agitated. Staff offered prns but report she declined. She maintains that she does not want to take Seroquel "ever again" as too sedating and is willing for ongoing stay and Geodon titration. I spoke with her outpatient prescriber who confirmed that Geodon trial was ongoing as outpatient, supports titration. Shares same concerns about stimulant medication and SSRI. Physical Exam Psychiatric Orientation: alert, oriented to person, oriented to place and cooperative Apperance: appropriately groomed Eye Contact: good eye contact Motor Behavior: no abnormal motor movements Affect: + mood not congruent with affect (overly bright) Thought Process: clear/coherent thought process Thought Content: not paranoid and no delusions Suicidal Thoughts: denies suicidal thoughts Homicidal Thoughts: denies homicidal thoughts Hallucinations: no auditory hallucinations and no visual hallucinations Cognition: attention grossly intact Insight: + limited insight and + impaired insight Judgement: + limited judgement and + impaired judgement Vital Signs (Past 24 Hours) Last Vital Signs Temp 36.7 C 04/25/20 06:28 Pulse 74 04/25/20 06:29 Resp 18 04/25/20 06:28 BP 114/77 04/25/20 06:29 Pulse Ox 99 04/22/20 23:30 Results & Data ([facility] [place]) Laboratory Results Laboratory Results - last 24 hr 04/24/20 07:46 Sodium 140 Potassium 4.2 D Chloride 108 H Carbon Dioxide 28 Anion Gap 4.0 Fasting Glucose 82 Triglycerides 86 Cholesterol 217 H LDL Cholesterol, Calc 151 VLDL Cholesterol, Calc 17 HDL Cholesterol 49 Cholesterol/HDL Ratio 4 Current Inpatient Medications Current Inpatient Medications: Current Inpatient Medications Acetaminophen (Tylenol) 650 mg PO Q4H PRN PRN Reason: Headache or Minor Fever Stop: 05/22/20 22:31 Al Hydrox/Mg Hydrox/Simethicone (Maalox) 30 ml PO Q4H PRN PRN Reason: GI Upset Stop: 05/22/20 22:31 Albuterol (Ventolin Hfa) 2 puffs INH Q4H PRN PRN Reason: Shortness Of Breath Or Wheezing Stop: 05/23/20 10:17 Bismuth Subsalicylate (Kaopectate) 15 ml PO PRN PRN PRN Reason: Loose Stool Stop: 05/22/20 22:31 Haloperidol (Haldol) 2 mg PO Q6 PRN PRN Reason: Paranoia Stop: 05/22/20 22:36 Hydroxyzine HCl (Vistaril) 50 mg PO HSZ PRN PRN Reason: Insomnia Stop: 05/22/20 22:31 Hydroxyzine HCl (Vistaril) 25 mg PO Q4H PRN PRN Reason: Anxiety Stop: 05/22/20 22:31 Lorazepam (Ativan) 1 mg PO Q6H PRN PRN Reason: Anxiety/Agitation Stop: 05/24/20 17:42 Magnesium Hydroxide (Milk Of Magnesia) 30 ml PO DAILY PRN PRN Reason: Constipation Stop: 05/22/20 22:31 Miscellaneous (Order Awaiting Action) 1 ea N/A QS HEATH Stop: 05/23/20 15:59 Last Admin: 04/25/20 00:14 Dose: Not Given Documented by: Sodium Chloride ([place] Nasal) 1 - 2 sprays NA PRN PRN PRN Reason: Nasal Dryness/Congestion Stop: 05/22/20 22:31 Ziprasidone (Geodon) 40 mg PO QDD HEATH Stop: 05/23/20 17:44 Last Admin: 04/24/20 17:25 Dose: 40 mg Documented by: Mental Health & Subst Abuse Tx Therapist Name of Therapist: Jacklyn (unknown last name) [employer]ASS[employer] Dem[employer] Name of [employer] Appliances Demonstrator: none Post Discharge Appointments Primary Care Physician Name Of Family Doctor: DEMETRIUS
--- NOTE | 2020-04-26 13:42 | Psychiatric Progress Note ---
Date of Service April 26, 2020 Impression / Recommendations Impression 24 yo female with a history of bipolar disorder who presents with one week of thought disorganization and change in behavior culminating in loss of time and making perceived threat to burn down apartment. Her condition likely worsened due to ongoing use of MJ, perhaps even prescription meds like Adderall and Prozac have been too activating during the cross taper in atypicals. (1) Bipolar 1 disorder: 04/23 - The patient was admitted to the [facility] ([facility] health unit) on q15 min checks (behavioral with suicide precautions) for safety. The patient will participate in group, recreational, and milieu therapies and will be offered additional individual and family sessions as clinically appropriate. Risks/benefits/alternatives reviewed re: current medications. Adderall preps will be held given alessandro and need to confirm diagnosis, particularly in the setting of bipolar mood disorder. Prozac to be held due to alessandro. D/C Seroquel as per outpatient plan and titrate Geodon to 40 mg daily. Risks/benefits/alternative treatments reviewed, including but not limited to need for monitoring for metabolic and TD risks. AIMS=0 at baseline. fasting lipids in am. Reviewed importance of taking Geodon with evening meal for absorption. 04/24 continue current meds and treatment plan, tolerating 40 mg Geodon and appears much improved. Reviewed labs. 04/25--variable presentation shift to shift suggests ongoing alessandro. Titrate Geodon 60 mg qpm. d/c MNPR. 04/26 -continue current medications. Reviewed fasting labs: Glucose 82, FLP notable for cholesterol 217 (2) Cannabis use disorder, moderate, dependence: 04/23 - at this point a rule out, recommend abstinence, daily use with previous use of controlled substance is not advised during this episode. She is not able to participate in meaningful discussion around treatment at this time due to though disorganization. 04/24--Brief intervention was offered and accepted. Intervention was greater than 5 min in length and included assessing readiness to quit, advice on how to reduce or abstain from MJ, and to set a specific goal for this hospitalization. The patient is in contemplation stage, mainly not using street MJ. Reviewed risks of worsening her condition as well as interaction with prescription medications. (3) Hypokalemia: 04/23 - received one dose of Kdur in ED. Will repeat and recheck K in am. Likely due to poor nutrition/emesis prior to admission. 04/26 -potassium on 04/24/2020 had normalized at 4.2. Inventory Assets Strengths: intelligent, local family support Needs: medication adjustment, education around commitment, mother to care for 2 cats. 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 Review of Systems Sleep Information Total Hours of Sleep: 7.5 Sleep Comments: pt on q-15 minute checks Meal Information Percent Meal Consumed - Breakfast: 75 Percent Meal Consumed - Lunch: 100 Percent Meal Consumed - Dinner: 95 Subjective Subjective Patient was seen & assessed and interval progress reviewed with nursing and social work. Staff report she has been attending and participating in groups and therapy, eating, and taking medications as prescribed. She met with the professor of social work today to work on discharge planning, and they attempted to contact [employer] office of student care and advocacy, [place], and [place]. On my assessment, she states that she feels mood is improving, her thinking is clearer and more organized, and that she was "thinking about craziness before I came in." She thinks treatment is helping, states "I feel like I am finding peace everywhere here." She thinks she destabilized that she was "overwhelmed with stress and got dehydrated, and her behavior was abnormal, shouting out keywords and codes, my mind was disorganized." She has poor recollection of some of the conversation she has had with staff over the past few days. Sleep is improving and she describes it as "coming and going." She thinks medications are helping, and is willing to sign in for voluntary treatment. Reviewed her estimated length of stay as of yesterday, and she indicates agreement. Physical Exam Psychiatric Orientation: alert and cooperative Apperance: appropriately dressed, appropriately groomed and appeared stated age Eye Contact: good eye contact Motor Behavior: steady gait and station and no abnormal motor movements Speech: normal rate/rhythm/volume of speech Affect: euthymic affect Expansive, euphoric "Getting better." Disorganized, somewhat superficial answers at times, occasionally makes unrelated statements. Thought Content: reality based without delusions Suicidal Thoughts: denies suicidal thoughts Homicidal Thoughts: denies homicidal thoughts Hallucinations: no auditory hallucinations Cognition: language grossly intact; + recent memory not intact Insight: + fair insight Judgement: + fair judgement Vital Signs (Past 24 Hours) Last Vital Signs Temp 36.6 C 04/26/20 06:37 Pulse 76 04/26/20 06:37 Resp 18 04/26/20 06:37 BP 105/68 04/26/20 06:37 Pulse Ox 99 04/22/20 23:30 Results & Data ([facility]) Current Inpatient Medications Current Inpatient Medications: Current Inpatient Medications Acetaminophen (Tylenol) 650 mg PO Q4H PRN PRN Reason: Headache or Minor Fever Stop: 05/22/20 22:31 Al Hydrox/Mg Hydrox/Simethicone (Maalox) 30 ml PO Q4H PRN PRN Reason: GI Upset Stop: 05/22/20 22:31 Albuterol (Ventolin Hfa) 2 puffs INH Q4H PRN PRN Reason: Shortness Of Breath Or Wheezing Stop: 05/23/20 10:17 Bismuth Subsalicylate (Kaopectate) 15 ml PO PRN PRN PRN Reason: Loose Stool Stop: 05/22/20 22:31 Haloperidol (Haldol) 2 mg PO Q6 PRN PRN Reason: Paranoia Stop: 05/22/20 22:36 Hydroxyzine HCl (Vistaril) 50 mg PO HSZ PRN PRN Reason: Insomnia Stop: 05/22/20 22:31 Hydroxyzine HCl (Vistaril) 25 mg PO Q4H PRN PRN Reason: Anxiety Stop: 05/22/20 22:31 Lorazepam (Ativan) 1 mg PO Q6H PRN PRN Reason: Anxiety/Agitation Stop: 05/24/20 17:42 Magnesium Hydroxide (Milk Of Magnesia) 30 ml PO DAILY PRN PRN Reason: Constipation Stop: 05/22/20 22:31 Miscellaneous (Order Awaiting Action) 1 ea N/A QS HEATH Stop: 05/23/20 15:59 Last Admin: 04/26/20 08:27 Dose: Not Given Documented by: Sodium Chloride ([place] Nasal) 1 - 2 sprays NA PRN PRN PRN Reason: Nasal Dryness/Congestion Stop: 05/22/20 22:31 Ziprasidone (Geodon) 60 mg PO QDD HEATH Stop: 05/25/20 17:44 Last Admin: 04/25/20 17:09 Dose: 60 mg Documented by: Mental Health & Subst Abuse Tx Psychiatrist Name of Psychiatrist: Atul Rosa Psychiatrist's Psychiatric Appointment Comment: [facility] Therapist Name of Therapist: [facility] Therapist's Therapy Appointment Comment: [address], [address], [place] [employer]er Pipe Cleaner Name of Sewer Pipe Cleaner: [facility] Phone Number for Sewer Pipe Cleaner: [phone] Case Management Appointment Comment: [address] [facility] Post Discharge Appointments Primary Care Physician Name Of Family Doctor: [facility] Primary Care Provider Appointment Comment: Please follow up as needed Contact Information Discharge Discharge Address: [facility] [address], [address], [place] [address]
[2020-04-26 14:44] LABS: Amphetamine Urine, Confirm 2030 ng/mL (<250); Marijuana Quant, GCMS Urine 540 ng/mL (<5); Methamphetamine, Ur Confirm NEGATIVE ng/mL (<250)
--- NOTE | 2020-04-27 14:58 | Psychiatric Progress Note ---
Date of Service April 27, 2020 Impression / Recommendations Impression 24 yo female with a history of bipolar disorder who presents with one week of thought disorganization and change in behavior culminating in loss of time and making perceived threat to burn down apartment. Her condition likely worsened due to ongoing use of MJ, perhaps even prescription meds like Adderall and Prozac have been too activating during the cross taper in atypicals. (1) Bipolar 1 disorder: 04/23 - The patient was admitted to the [facility] ([facility]) on q15 min checks (behavioral with suicide precautions) for safety. The patient will participate in group, recreational, and milieu therapies and will be offered additional individual and family sessions as clinically appropriate. Risks/benefits/alternatives reviewed re: current medications. Adderall preps will be held given alessandro and need to confirm diagnosis, particularly in the setting of bipolar mood disorder. Prozac to be held due to alessandro. D/C Seroquel as per outpatient plan and titrate Geodon to 40 mg daily. Risks/benefits/alternative treatments reviewed, including but not limited to need for monitoring for metabolic and TD risks. AIMS=0 at baseline. fasting lipids in am. Reviewed importance of taking Geodon with evening meal for absorption. 04/24 continue current meds and treatment plan, tolerating 40 mg Geodon and appears much improved. Reviewed labs. 04/25--variable presentation shift to shift suggests ongoing alessandro. Titrate Geodon 60 mg qpm. d/c MNPR. 04/26 -continue current medications. Reviewed fasting labs: Glucose 82, FLP notable for cholesterol 217 04/27 -Continue current medication regimen. -Patient submitted a 72-hour notice to withdraw from her treatment on 04/27/2020 at 1325. -Patient still got irritated easily in the family meeting yesterday and shows pressured speech occasionally with certain topics on the assessment. However significant improvement in her manic episode noted. -Her outpatient psychiatrist, Anisha Rosa PA-C, agrees with limited use of stimulants and advised her mother to remove all the stimulants at her house. She will offer a neuropsychological evaluation for definitive diagnosis of ADHD after she is discharged and try guanfacine or clonidine for her ADHD instead of the stimulants. Detail is included under subjective. (2) Cannabis use disorder, moderate, dependence: 04/23 - at this point a rule out, recommend abstinence, daily use with previous use of controlled substance is not advised during this episode. She is not able to participate in meaningful discussion around treatment at this time due to though disorganization. 04/24--Brief intervention was offered and accepted. Intervention was greater than 5 min in length and included assessing readiness to quit, advice on how to reduce or abstain from MJ, and to set a specific goal for this hospitalization. The patient is in contemplation stage, mainly not using street MJ. Reviewed risks of worsening her condition as well as interaction with prescription medications. (3) Hypokalemia: 04/23 - received one dose of Kdur in ED. Will repeat and recheck K in am. Likely due to poor nutrition/emesis prior to admission. 04/26 -potassium on 04/24/2020 had normalized at 4.2. Inventory Assets Strengths: intelligent, local family support Needs: medication adjustment, education around commitment, mother to care for 2 cats. 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 Review of Systems Notes Constitutional: denied cardiovascular: denied Respiratory: denied GI: denied Neurologic: denied Psychiatric: denies symptoms other than stated above Remainder of 10 body systems also reviewed and denied other than noted above. Sleep Information Total Hours of Sleep: 7.5 Sleep Comments: pt on q-15 minute checks Meal Information Percent Meal Consumed - Breakfast: 75 Percent Meal Consumed - Lunch: 100 Percent Meal Consumed - Dinner: 50 Subjective Subjective Patient was seen & assessed and interval progress reviewed with treatment team. Staff report that she has shown improvement in mood and attended/participated in unit programmings. She has been pretty supportive to peers. She finished her safety plan yesterday and her aftercare set up with [employer] office of student care and advocacy at 10 AM on May 02 and [facility] 4 PM on the same day. Family meeting over the phone last night did not go well and she declines further meeting with her family today. Patient was seen today to assess progress since admission. She reports that she has been feeling much better and her mood swing has been stabilized significantly. She states that her manic symptoms started 2 or 3 days before the admission and her grandmother did not notice any change in her behaviors or moods when she visited her about 5 to 6 days prior to the episode. Also when she was seen by her psychiatrist over the phone, Anisha Rosa PA-C, at [place] on April 19, she did not notice any change either. She thinks her manic episode might be triggered by school stress or frustration with her mother or grandmother. She has pretty good relationship with her grandmother, who lives in [place], [place], and visits her almost once a week. However she thinks mother and her grandmother do not care about her therapy or treatment much and they keep asking who her psychiatrists are or how they can be reached. Last night she could not tolerate all these "treatment irrelevant "questions and she got pretty upset and irritated afterwards. She submitted a 72-hour notice this afternoon and states that she is looking forward to going back to normal and finishing her exams. When she was asked to review her safety plan today, she could not give me any warning signs or coping strategies clearly. She also complains that she can't focus well without Adderall but is okay here since she doesn't need to study. Denies any side effects of medications. Anisha Rosa PA-C, at [place] was contacted this afternoon and informed this provider that she usually minimizes her symptoms. She was concerned that she could not tolerate quetiapine well at the last appointment over the phone on 04/19 since she was taking subtherapeutic doses of quetiapine due to hypersomnia possibly more than 2 weeks. Prozac was decreased to 20 mg from 30 mg and Geodon 20 mg was initiated that day. She was informed by her mom a couple days later that patient was delusional, disorganized, and aggressive without enough sleep and she submitted a 302 petition for her. She was informed that Adderall XR and Prozac have been held and Geodon titrated up to 60 mg during the hospitalization. Anisha noted patient's mother was advised that stimulants, including prescribed Adderall XR should be removed from the patient's access at home. Anisha also will offer a Neuropsychological evaluation after discharge and will put her on clonidine or guanfacine for her ADHD instead of the stimulants and wants us to inform this treatment plan for her. Physical Exam Psychiatric Orientation: alert and oriented x 3 Apperance: appropriately dressed and appropriately groomed Eye Contact: + fair eye contact Motor Behavior: steady gait and station and no abnormal motor movements Speech: normal rate/rhythm/volume of speech (with occasional pressued speech on a certain topic) Affect: euthymic affect Mood: no depressed mood and no anxious mood Thought Process: goal directed thought process and + looseness of associations (occasionally noted when she was asked about her safety plan) Thought Content: reality based without delusions; no hopelessness Suicidal Thoughts: denies suicidal thoughts Homicidal Thoughts: denies homicidal thoughts Hallucinations: no auditory hallucinations and no visual hallucinations Cognition: attention grossly intact Estimated Intelligence: consistent with education level Insight: + fair insight Judgement: + fair judgement Vital Signs (Past 24 Hours) Last Vital Signs Temp 36.6 C 04/27/20 06:36 Pulse 86 04/27/20 06:37 Resp 18 04/27/20 06:36 BP 105/70 04/27/20 06:37 Pulse Ox 99 04/22/20 23:30 Results & Data ([facility]) Current Inpatient Medications Current Inpatient Medications: Current Inpatient Medications Acetaminophen (Tylenol) 650 mg PO Q4H PRN PRN Reason: Headache or Minor Fever Stop: 05/22/20 22:31 Al Hydrox/Mg Hydrox/Simethicone (Maalox) 30 ml PO Q4H PRN PRN Reason: GI Upset Stop: 05/22/20 22:31 Albuterol (Ventolin Hfa) 2 puffs INH Q4H PRN PRN Reason: Shortness Of Breath Or Wheezing Stop: 05/23/20 10:17 Bismuth Subsalicylate (Kaopectate) 15 ml PO PRN PRN PRN Reason: Loose Stool Stop: 05/22/20 22:31 Haloperidol (Haldol) 2 mg PO Q6 PRN PRN Reason: Paranoia Stop: 05/22/20 22:36 Hydroxyzine HCl (Vistaril) 50 mg PO HSZ PRN PRN Reason: Insomnia Stop: 05/22/20 22:31 Hydroxyzine HCl (Vistaril) 25 mg PO Q4H PRN PRN Reason: Anxiety Stop: 05/22/20 22:31 Lorazepam (Ativan) 1 mg PO Q6H PRN PRN Reason: Anxiety/Agitation Stop: 05/24/20 17:42 Magnesium Hydroxide (Milk Of Magnesia) 30 ml PO DAILY PRN PRN Reason: Constipation Stop: 05/22/20 22:31 Miscellaneous (Order Awaiting Action) 1 ea N/A QS HEATH Stop: 05/23/20 15:59 Last Admin: 04/27/20 01:18 Dose: Not Given Documented by: Sodium Chloride ([place] Nasal) 1 - 2 sprays NA PRN PRN PRN Reason: Nasal Dryness/Congestion Stop: 05/22/20 22:31 Ziprasidone (Geodon) 60 mg PO QDD HEATH Stop: 05/25/20 17:44 Last Admin: 04/26/20 17:29 Dose: 60 mg Documented by: Mental Health & Subst Abuse Tx Psychiatrist Name of Psychiatrist: Atul Rosa Psychiatrist's Date of Appointment with Psychiatrist: 05/12/20 Time of Appointment with Psychiatrist: 10:00 a.m. Psychiatric Appointment Comment: [address] [place] [address] Therapist Name of Therapist: [facility] - Bobby Carbajal Therapist's Date of Therapist Appointment: 05/02/20 Time of Therapist Appointment: 4:00 p.m. Therapy Appointment Comment: Telehealth (will email you with directions to the appt) Reservationist Name of Reservationist: [facility] Phone Number for Reservationist: [phone] Date of Appointment with Reservationist: 05/02/20 Time of Appointment with Reservationist: 10:00 a.m. Case Management Appointment Comment: [facility] will call you Post Discharge Appointments Primary Care Physician Name Of Family Doctor: [facility] Primary Care Provider Appointment Comment: Please follow up as needed Contact Information Discharge Discharge Address: [address], [address], [place] [address]
--- NOTE | 2020-04-28 11:47 | Psychiatric Progress Note ---
Date of Service April 28, 2020 Impression / Recommendations Impression 24 yo female with a history of bipolar disorder who presents with one week of thought disorganization and change in behavior culminating in loss of time and making perceived threat to burn down apartment. Her condition likely worsened due to ongoing use of MJ, perhaps even prescription meds like Adderall and Prozac have been too activating during the cross taper in atypicals. (1) Bipolar 1 disorder: 04/23 - The patient was admitted to the [facility] ([facility]) on q15 min checks (behavioral with suicide precautions) for safety. The patient will participate in group, recreational, and milieu therapies and will be offered additional individual and family sessions as clinically appropriate. Risks/benefits/alternatives reviewed re: current medications. Adderall preps will be held given alessandro and need to confirm diagnosis, particularly in the setting of bipolar mood disorder. Prozac to be held due to alessandro. D/C Seroquel as per outpatient plan and titrate Geodon to 40 mg daily. Risks/benefits/alternative treatments reviewed, including but not limited to need for monitoring for metabolic and TD risks. AIMS=0 at baseline. fasting lipids in am. Reviewed importance of taking Geodon with evening meal for absorption. 04/24 continue current meds and treatment plan, tolerating 40 mg Geodon and appears much improved. Reviewed labs. 04/25--variable presentation shift to shift suggests ongoing alessandro. Titrate Geodon 60 mg qpm. d/c MNPR. 04/26 -continue current medications. Reviewed fasting labs: Glucose 82, FLP notable for cholesterol 217 04/27 -Continue current medication regimen. -Patient submitted a 72-hour notice to withdraw from her treatment on 04/27/2020 at 1325. -Patient still got irritated easily in the family meeting yesterday and shows pressured speech occasionally with certain topics on the assessment. However significant improvement in her manic episode noted. -Her outpatient psychiatrist, Anisha Rosa PA-C, agrees with limited use of stimulants and advised her mother to remove all the stimulants at her house. She will offer a neuropsychological evaluation for definitive diagnosis of ADHD after she is discharged and try guanfacine or clonidine for her ADHD instead of the stimulants. Detail is included under subjective. 04/28 -Continue current medication regimen. -Patient doesn't want to rescind her 72-hour notice and is pretty upset when she was asked to consider this since she is more than ready to be discharged and doesn't agree with our concern of her mood instability. -A family meeting will be arranged with her mother and/or her grandmother since she accepted one today to show how she can handle stressful situations to us. -Discussion regarding use of stimulants or marijuana not done today since she was not ready emotionally to process this. (2) Cannabis use disorder, moderate, dependence: 04/23 - at this point a rule out, recommend abstinence, daily use with previous use of controlled substance is not advised during this episode. She is not able to participate in meaningful discussion around treatment at this time due to though disorganization. 04/24--Brief intervention was offered and accepted. Intervention was greater than 5 min in length and included assessing readiness to quit, advice on how to reduce or abstain from MJ, and to set a specific goal for this hospitalization. The patient is in contemplation stage, mainly not using street MJ. Reviewed risks of worsening her condition as well as interaction with prescription medications. (3) Hypokalemia: 04/23 - received one dose of Kdur in ED. Will repeat and recheck K in am. Likely due to poor nutrition/emesis prior to admission. 04/26 -potassium on 04/24/2020 had normalized at 4.2. Inventory Assets Strengths: intelligent, local family support Needs: medication adjustment, education around commitment, mother to care for 2 cats. 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 Review of Systems Notes Constitutional: denied cardiovascular: denied Respiratory: denied GI: denied Neurologic: denied Psychiatric: denies symptoms other than stated above Remainder of 10 body systems also reviewed and denied other than noted above. Sleep Information Total Hours of Sleep: 9.25 Sleep Comments: pt on q-15 minute checks Meal Information Percent Meal Consumed - Breakfast: 95 Percent Meal Consumed - Lunch: 100 Percent Meal Consumed - Dinner: 100 Subjective Subjective Patient was seen & assessed and interval progress reviewed with nursing and social work. Staff reports that she did not doing community meeting last night, which is unusual to her, saying she was too tired last night. This morning her mood was 6/10 and "excited" in the community meeting. Patient was seen today to assess progress systems admission. Patient reports that she feels pretty good today. She reports that she had 2 phone calls with her mother last night and she felt pretty emotional and had a crying spell. She said she got upset and emotional when her mother mentioned about her cat but she just told me she misses her cat and there was no significant argument with her mother. She also states that her mother asks her about food or medications but she does not have any courage to ask her mood or her mental illness even though they both know why she is here in the hospital. When she was asked if she has any willingness to rescind her 72-hour notice since we are somewhat concerned about her readiness of discharge, she says, "I am more than ready to leave ". She looked somewhat offended and angry with this question and she said how she can prove that she is ready to leave. And then she said she would show us how well she could tolerate a family meeting with her mother and/or her grandmother whenever the meeting is set up. She wanted to discontinue our conversation afterwards, standing up from the chair, and stated that she was not upset or frustrated. Physical Exam Psychiatric Orientation: alert and oriented x 3 Apperance: appropriately dressed and appropriately groomed Eye Contact: + fair eye contact Motor Behavior: steady gait and station and no abnormal motor movements Speech: normal rate/rhythm/volume of speech Affect: + labile affect and + angry affect; no depressed affect, no anxious affect and + mood not congruent with affect she looked angry and didn't want to continue conversation, saying she is fine and not frustrated. Mood: no depressed mood Thought Process: goal directed thought process Thought Content: + cognitive distortions and reality based without delusions Suicidal Thoughts: denies suicidal thoughts Homicidal Thoughts: denies homicidal thoughts Hallucinations: no auditory hallucinations and no visual hallucinations Cognition: attention grossly intact and language grossly intact Estimated Intelligence: consistent with education level Insight: + limited insight Judgement: + limited judgement Vital Signs (Past 24 Hours) Last Vital Signs Temp 36.8 C 04/28/20 06:32 Pulse 76 04/28/20 06:33 Resp 18 04/28/20 06:32 BP 106/69 04/28/20 06:33 Pulse Ox 99 04/22/20 23:30 Results & Data ([facility]) Current Inpatient Medications Current Inpatient Medications: Current Inpatient Medications Acetaminophen (Tylenol) 650 mg PO Q4H PRN PRN Reason: Headache or Minor Fever Stop: 05/22/20 22:31 Al Hydrox/Mg Hydrox/Simethicone (Maalox) 30 ml PO Q4H PRN PRN Reason: GI Upset Stop: 05/22/20 22:31 Albuterol (Ventolin Hfa) 2 puffs INH Q4H PRN PRN Reason: Shortness Of Breath Or Wheezing Stop: 05/23/20 10:17 Bismuth Subsalicylate (Kaopectate) 15 ml PO PRN PRN PRN Reason: Loose Stool Stop: 05/22/20 22:31 Haloperidol (Haldol) 2 mg PO Q6 PRN PRN Reason: Paranoia Stop: 05/22/20 22:36 Hydroxyzine HCl (Vistaril) 50 mg PO HSZ PRN PRN Reason: Insomnia Stop: 05/22/20 22:31 Hydroxyzine HCl (Vistaril) 25 mg PO Q4H PRN PRN Reason: Anxiety Stop: 05/22/20 22:31 Lorazepam (Ativan) 1 mg PO Q6H PRN PRN Reason: Anxiety/Agitation Stop: 05/24/20 17:42 Magnesium Hydroxide (Milk Of Magnesia) 30 ml PO DAILY PRN PRN Reason: Constipation Stop: 05/22/20 22:31 Miscellaneous (Order Awaiting Action) 1 ea N/A QS HEATH Stop: 05/23/20 15:59 Last Admin: 04/27/20 15:28 Dose: Not Given Documented by: Sodium Chloride ([place] Nasal) 1 - 2 sprays NA PRN PRN PRN Reason: Nasal Dryness/Congestion Stop: 05/22/20 22:31 Ziprasidone (Geodon) 60 mg PO QDD HEATH Stop: 05/25/20 17:44 Last Admin: 04/27/20 17:22 Dose: 60 mg Documented by: Mental Health & Subst Abuse Tx Psychiatrist Name of Psychiatrist: Atul Rosa Psychiatrist's Date of Appointment with Psychiatrist: 05/12/20 Time of Appointment with Psychiatrist: 10:00 a.m. Psychiatric Appointment Comment: [id number] [facility] Therapist Name of Therapist: [facility] - Bobby Carbajal Therapist's Date of Therapist Appointment: 05/02/20 Time of Therapist Appointment: 4:00 p.m. Therapy Appointment Comment: Telehealth (will email you with directions to the appt) Glass Etcher Name of Glass Etcher: [facility] Phone Number for Glass Etcher: [phone] Date of Appointment with Glass Etcher: 05/02/20 Time of Appointment with Glass Etcher: 10:00 a.m. Case Management Appointment Comment: [facility] will call you Post Discharge Appointments Primary Care Physician Name Of Family Doctor: [facility] Primary Care Provider Appointment Comment: Please follow up as needed Contact Information Discharge Discharge Address: [facility] [address] [facility] [address], [place] [address]
--- NOTE | 2020-04-29 09:22 | Psychiatric Progress Note ---
Date of Service April 29, 2020 Impression / Recommendations Impression 24 yo female with a history of bipolar disorder who presents with one week of thought disorganization and change in behavior culminating in loss of time and making perceived threat to burn down apartment. Her condition likely worsened due to ongoing use of MJ, perhaps even prescription meds like Adderall and Prozac have been too activating during the cross taper in atypicals. Adderall and Prozac were not continued, and during the hospital stay she has been treated with Geodon. Occasionally, the patient's thinking appears to be slightly idiosyncratic. For example, she spontaneously said, "I sometimes think I will start hallucinating." However, when asked if she is ever hallucinated she replies in the negative and says that this is only something that she has been worrying about recently because she understands that hallucinations can be a sign of deteriorating mental health. Also, questions have to be repeated sometimes because the patient seems to be distracted, although this may have been a function of difficulty hearing as the interviewer was wearing a mask. The patient tells now reports that she feels as if she is tolerating Geodon 60 mg a day well, that she is not having trouble keeping her thoughts clear, and that she is having no thoughts of suicide and no thoughts of causing physical harm to the person or property of others. I would agree that the presenting symptoms would appear to have been possibly related to the use of Adderall and Prozac during a period of cross titration to a different antipsychotic medication, and it may also be assumed that the patient may not have been taking her medications as prescribed given the fact that she could not remember the day of the week and, in fact, was disorganized enough that she neglected to attend a wedding where she was 1 of the bridesmaids. I believe further observation and treatment at the hospital level of care is medically necessary, but at this time she does not appear to meet criteria for involuntary commitment. (1) Bipolar 1 disorder: 04/23 - The patient was admitted to the [facility] ([facility]) on q15 min checks (behavioral with suicide precautions) for safety. The patient will participate in group, recreational, and milieu therapies and will be offered additional individual and family sessions as clinically appropriate. Risks/benefits/alternatives reviewed re: current medications. Adderall preps will be held given alessandro and need to confirm diagnosis, particularly in the setting of bipolar mood disorder. Prozac to be held due to alessandro. D/C Seroquel as per outpatient plan and titrate Geodon to 40 mg daily. Risks/benefits/alternative treatments reviewed, including but not limited to need for monitoring for metabolic and TD risks. AIMS=0 at baseline. fasting lipids in am. Reviewed importance of taking Geodon with evening meal for absorption. 04/24 continue current meds and treatment plan, tolerating 40 mg Geodon and appears much improved. Reviewed labs. 04/25--variable presentation shift to shift suggests ongoing alessandro. Titrate Geodon 60 mg qpm. d/c MNPR. 04/26 -continue current medications. Reviewed fasting labs: Glucose 82, FLP notable for cholesterol 217 04/27 -Continue current medication regimen. -Patient submitted a 72-hour notice to withdraw from her treatment on 04/27/2020 at 1325. -Patient still got irritated easily in the family meeting yesterday and shows pressured speech occasionally with certain topics on the assessment. However significant improvement in her manic episode noted. -Her outpatient psychiatrist, Anisha Rosa PA-C, agrees with limited use of stimulants and advised her mother to remove all the stimulants at her house. She will offer a neuropsychological evaluation for definitive diagnosis of ADHD after she is discharged and try guanfacine or clonidine for her ADHD instead of the stimulants. Detail is included under subjective. 04/28 -Continue current medication regimen. -Patient doesn't want to rescind her 72-hour notice and is pretty upset when she was asked to consider this since she is more than ready to be discharged and doesn't agree with our concern of her mood instability. -A family meeting will be arranged with her mother and/or her grandmother since she accepted one today to show how she can handle stressful situations to us. -Discussion regarding use of stimulants or marijuana not done today since she was not ready emotionally to process this. 04/29 -The patient's thinking remains perhaps somewhat idiosyncratic. However, her behavior on the unit has been fairly well organized, her thought processes are reasonably organized at this point, and she is fully oriented to date, day of the week, person, place and situation. She attends to her own physical needs and continues to report that she is not experiencing any suicidal or homicidal thoughts. -The patient seemed to be somewhat flustered by a question regarding the degree to which she may be minimizing or underreporting symptoms, and she struggled a bit for response. However, after asking the question to be repeated she acknowledges that she does sometimes minimize symptoms, but that she truly feels that her thinking has cleared and that she will be ready for discharge at the end of her 72-hour notice. Present on Admission?: Yes (2) Cannabis use disorder, moderate, dependence: 04/23 - at this point a rule out, recommend abstinence, daily use with previous use of controlled substance is not advised during this episode. She is not able to participate in meaningful discussion around treatment at this time due to though disorganization. 04/24--Brief intervention was offered and accepted. Intervention was greater than 5 min in length and included assessing readiness to quit, advice on how to reduce or abstain from MJ, and to set a specific goal for this hospitalization. The patient is in contemplation stage, mainly not using street MJ. Reviewed risks of worsening her condition as well as interaction with prescription medications. 04/29 --Education provided regarding marijuana use, and the potential of this drug to contribute to confusional states, time loss, and disorganized thinking/behavior, particularly in the presence of a mood disorder such as bipolar disorder. The patient was receptive and indicated understanding. Present on Admission?: Yes (3) Hypokalemia: 04/23 - received one dose of Kdur in ED. Will repeat and recheck K in am. Likely due to poor nutrition/emesis prior to admission. 04/26 -potassium on 04/24/2020 had normalized at 4.2. Present on Admission?: Yes Inventory Assets Strengths: intelligent, local family support Needs: medication adjustment, education around commitment, mother to care for 2 cats. Risk Factors Assessment Male: No : Yes Do You Have Access To A Gun?: No Mental Health Diagnoses: Yes Previous Attempt: No Protective Factors Assessment : No Responsible for Young Children: No Employed: Yes ([employer] @ [employer]) Supportive Family: Yes Good Rapport with Provider: Yes Absence of Any Risk Factors Above: No Interval History Chief Complaint "I got confused, couldn't figure out what day it was." Review of Systems Sleep Information Total Hours of Sleep: 7.25 Sleep Comments: pt on q-15 minute checks Meal Information Percent Meal Consumed - Breakfast: 95 Percent Meal Consumed - Lunch: 100 Percent Meal Consumed - Dinner: 100 Subjective Subjective Patient was seen & assessed and interval progress reviewed with treatment team. I met individually with the patient in order to assess her current mental status, evaluate her response to treatment, coordinate any necessary changes in the patient's treatment regimen with the patient, and address issues, questions and concerns that may arise. The patient begins by describing the circumstances under which she was admitted last week. She notes that she was aware that she was very easily confused, and, for example, could not fully get her self oriented to date, day of the week, and situation. The patient explains, "I just kept asking people what day of the week it was, and they kept telling me, but then I could not keep it straight." The patient was to have been a bridesmaid in a wedding, and she said that she became obsessively worried that she would get confused about the date and end up missing the weddingand, in fact, according to the patient that is what happened. She again lost track of the date, miscalculated, and ended up not appearing at the wedding. Patient reports that in the preceding. Her outpatient psychiatrist was in the process of cross titrating her to Geodon, and she was also being treated with Prozac at titrating dosages that reached 30 mg a day. 1 of the patient's focal concerns had to do with the instruction that she had to take Geodon with food, and she said that she obsessively worried about whether she had or had not eaten food or whether the food would induce nausea in combination with the medicine. In addition, the patient had been using marijuana as a way of "coping". It had been thought that some of the statements the patient made prior to admission suggested that she was considering letting a fire in her apartment, although today the patient says that she cannot imagine that she ever even consider that. The patient also currently states that she feels that her confusion has "pretty much resolved." I spoke to the patient about reports that she tends to minimize symptoms, and the patient responded by smiling and saying "I think sometimes that is true. But, really, I think I am feeling a lot better now." She is fully oriented to time, place, person and situation today. Currently, the patient has a 72-hour notice of intent to leave, and politely tells us that she is unwilling to retract the notice. Sleep and appetite reportedly are "good." Physical Exam Psychiatric Orientation: alert, oriented x 3 and cooperative Apperance: appropriately dressed and appropriately groomed Eye Contact: good eye contact Motor Behavior: steady gait and station Speech: normal rate/rhythm/volume of speech The patient's speech is not pressured. Affect: euthymic affect Patient smiles appropriately periodically throughout the interview. "I would say is pretty good. Not depressed. Not too up." Thought Process: goal directed thought process Thought Content: reality based without delusions Suicidal Thoughts: denies suicidal thoughts Homicidal Thoughts: denies homicidal thoughts The patient reports that she is having no thoughts of causing physical harm to the person or property of others and has not, to the best of her memory, ever had thoughts of intentionally lighting a fire in her apartment or anywhere else. Hallucinations: no auditory hallucinations Patient reports that 1 of the things that she had been obsessively worrying about is whether she would start experiencing auditory hallucinations. She notes that she has never had auditory hallucinations, but began to worry extensively that these may start and that it would be considered "a positive symptom [apparently of schizophrenia]." Cognition: recent memory grossly intact Estimated Intelligence: + above average estimated intelligence Insight: + fair insight Judgement: + fair judgement Vital Signs (Past 24 Hours) Last Vital Signs Temp 36.7 C 04/29/20 06:20 Pulse 88 04/29/20 06:20 Resp 18 04/29/20 06:20 BP 111/74 04/29/20 06:20 Pulse Ox 99 04/22/20 23:30 Results & Data ([facility]) Current Inpatient Medications Current Inpatient Medications: Current Inpatient Medications Acetaminophen (Tylenol) 650 mg PO Q4H PRN PRN Reason: Headache or Minor Fever Stop: 05/22/20 22:31 Al Hydrox/Mg Hydrox/Simethicone (Maalox) 30 ml PO Q4H PRN PRN Reason: GI Upset Stop: 05/22/20 22:31 Albuterol (Ventolin Hfa) 2 puffs INH Q4H PRN PRN Reason: Shortness Of Breath Or Wheezing Stop: 05/23/20 10:17 Bismuth Subsalicylate (Kaopectate) 15 ml PO PRN PRN PRN Reason: Loose Stool Stop: 05/22/20 22:31 Haloperidol (Haldol) 2 mg PO Q6 PRN PRN Reason: Paranoia Stop: 05/22/20 22:36 Hydroxyzine HCl (Vistaril) 50 mg PO HSZ PRN PRN Reason: Insomnia Stop: 05/22/20 22:31 Last Admin: 04/28/20 22:55 Dose: 50 mg Documented by: Hydroxyzine HCl (Vistaril) 25 mg PO Q4H PRN PRN Reason: Anxiety Stop: 05/22/20 22:31 Lorazepam (Ativan) 1 mg PO Q6H PRN PRN Reason: Anxiety/Agitation Stop: 05/24/20 17:42 Magnesium Hydroxide (Milk Of Magnesia) 30 ml PO DAILY PRN PRN Reason: Constipation Stop: 05/22/20 22:31 Miscellaneous (Order Awaiting Action) 1 ea N/A QS HEATH Stop: 05/23/20 15:59 Last Admin: 04/29/20 09:06 Dose: Not Given Documented by: Sodium Chloride ([place] Nasal) 1 - 2 sprays NA PRN PRN PRN Reason: Nasal Dryness/Congestion Stop: 05/22/20 22:31 Ziprasidone (Geodon) 60 mg PO QDD HEATH Stop: 05/25/20 17:44 Last Admin: 04/28/20 17:26 Dose: 60 mg Documented by: Mental Health & Subst Abuse Tx Psychiatrist Name of Psychiatrist: Atul Rosa Psychiatrist's Date of Appointment with Psychiatrist: 05/12/20 Time of Appointment with Psychiatrist: 10:00 a.m. Psychiatric Appointment Comment: [id number] [facility] Therapist [facility] The[facility]'s Date of Therapist Appointment: 05/02/20 Time of Therapist Appointment: 4:00 p.m. Therapy Appointment Comment: Telehealth (will email you with directions to the appt) Bolt Maker Name of Bolt Maker: [facility] Phone Number for Bolt Maker: [phone] Date of Appointment with Bolt Maker: 05/02/20 Time of Appointment with Bolt Maker: 10:00 a.m. Case Management Appointment Comment: [facility] will call you Post Discharge Appointments Primary Care Physician Name Of Family Doctor: [facility] Primary Care Provider Appointment Comment: Please follow up as needed Contact Information Discharge Discharge Address: [facility] [address], [place] [address]
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
[2020-04-30] MEDS ORDERED: Nursing to Pharmacy Communication SCH (11:15)
== END 2020-04-30 11:55 | disposition home or self-care (01) | DRG 885 ==
LOC: ED 16:57 → 3S 22:32